=== PATIENT | female | born 1985 | race Caucasian/White ===

== ENCOUNTER 2020-07-17 08:13 | Emergency (ER) | payer MEDICAID ==
[~2020-07-17] VITALS: Ht 165.1 cm; Wt 70.0 kg
[2020-07-17] MEDS ORDERED: SODIUM CHLORIDE 0.9% 1,000 ML IV ONE (08:59)
[2020-07-17] MEDS ORDERED: ACETAMINOPHEN 325MG TABLET PO STA (08:59)
[2020-07-17 09:01] LABS: BASOPHILS % 0.7 % (0.0-2.0); HEMATOCRIT. 40.9 % (36.0-48.0); HEMOGLOBIN. 13.8 g/dL (12.0-16.0); LYMPHOCYTES % 26.1 % (20.0-50.0); MEAN CORPUSCULAR HEMOGLOBIN 30.7 pg (28.0-32.0); MEAN CORPUSCULAR VOLUME 90.7 fL (81.0-99.0); MEAN PLATELET VOLUME 9.3 fl (7.4-10.4); MONOCYTES % 4.1 % (2.0-8.0); NEUTROPHILS % 68.1 % (40.0-76.0); PLATELET 215 x1000/uL (130-400); RED BLOOD CELL COUNT 4.51 mill/uL (4.2-5.4); RED CELL DISTRIBUTION WIDTH 13.1 % (11.6-14.6)
[2020-07-17 09:08] LABS: CHLORIDE 110 mEq/L (98-107)
[2020-07-17 09:31] LABS: B-HCG QUANTITATIVE 3035 mIU/mL (<3)
[2020-07-17] MEDS ORDERED: MISOPROSTOL 200MCG TABLET RC ONE (11:00)
[2020-07-17 11:36] VITALS: BP 121/70
== END 2020-07-17 13:05 | disposition home or self-care (01) ==
LOC: ER 08:13
DX: O03.9 Complete or unspecified spontaneous abortion without complication (principal); Z3A.10 10 weeks gestation of pregnancy; Z88.6 Allergy status to analgesic agent
CPT/HCPCS: 36415; 76801; 76817; 80053; 84702; 85025; 86850; 86900; 86901; 93005; 99285; J7030